=== PATIENT | male | born 1930 | race Caucasian/White ===

== ENCOUNTER 2019-02-24 05:45 | Inpatient (IN) | payer MEDICARE ==
[~2019-02-24] VITALS: Ht 180.3 cm; Wt 80.9 kg
[~2019-02-24 05:45] MED LIST: CHOL2000 PO; FOLI-62 PO; LISI1TAB32 PO; MESA1.2T PO; OMEP-297 PO
[2019-02-24] MEDS ORDERED: normal saline 1000ML IV soln IVB ONE (05:50)
[2019-02-24] MEDS ORDERED: normal saline 1000ml 1,000 ML IV ONE (05:50)
[2019-02-24 06:43] LABS: BASOPHILS % (AUTO) 0.4 % (0-1); EOSINOPHILS # (AUTO) 0.1 X10'3 (0-0.9); EOSINOPHILS % (AUTO) 1.4 % (0-6); HEMATOCRIT 37.9 % (42.0-52.0); HEMOGLOBIN 12.9 g/dl (14.0-17.9); LYMPHOCYTES # (AUTO) 1.2 X10'3 (1.1-4.8); LYMPHOCYTES % (AUTO) 12.3 % (21-51); MEAN CORPUSCULAR HEMOGLOBIN 31.4 PG (27.0-31.0); MEAN CORPUSCULAR HGB CONC 33.9 g/dL (33.0-36.5); MEAN CORPUSCULAR VOLUME 92.5 FL (78-98); MONOCYTES # (AUTO) 0.5 X10'3 (0-0.9); MONOCYTES % (AUTO) 5.6 % (2-12); NEUTROPHILS # (AUTO) 7.6 X10'3 (1.8-7.7); NEUTROPHILS % (AUTO) 80.3 % (42-75); PLATELET COUNT 164 X10'3 (140-440); RED CELL DISTRIBUTION WIDTH 13.3 % (11.5-14.5); WHITE BLOOD COUNT 9.4 X10'3 (4.5-11.0)
[2019-02-24 06:53] LABS: ALANINE AMINOTRANSFERASE 51 U/L (12-78); ALBUMIN 3.8 G/DL (3.4-5.0); ALBUMIN/GLOBULIN RATIO 1.2 (1.1-1.5); ALKALINE PHOSPHATASE 69 IU/L (46-116); ANION GAP 10 (8-16); ASPARTATE AMINO TRANSFERASE 48 U/L (10-37); BILIRUBIN,TOTAL 0.6 MG/DL (0.1-1.0); BLOOD UREA NITROGEN 23 MG/DL (7-18); CALCIUM 9.2 MG/DL (8.5-10.1); CHLORIDE 105 MMOL/L (99-107); CREATININE 1.77 MG/DL (0.60-1.10); GLUCOSE 210 MG/DL (70-104); POTASSIUM 4.7 MMOL/L (3.5-5.1); SODIUM 141 MMOL/L (135-145); TOTAL CARBON DIOXIDE 26.1 MMOL/L (24-32); eGFR 36 ML/MIN
[2019-02-24] MEDS ORDERED: HYDROmorphone 1 mg/ml syringe IV ONE ×2 (06:55)
[2019-02-24] MEDS ORDERED: fentaNYL/PF 50MCG/1 ML 2ML syringe IV PRN ×2 (06:55→07:04)
[2019-02-24 06:57] LABS: LIPASE 171 U/L (73-393)
[2019-02-24] MEDS ORDERED: potassium Cl 20 mEq SR tablet PO PRN ×2 (07:35)
[2019-02-24] MEDS ORDERED: ondansetron/PF 4mg/2ml inj IV PRN (07:35)
[2019-02-24] MEDS ORDERED: potassium CL 10mEq/100ml bag 100 ML IV PRN ×2 (07:35)
[2019-02-24] MEDS ORDERED: magnesium 4gm in 100ml NS 100 ML IV PRN (07:35)
[2019-02-24] MEDS ORDERED: magnesium Cl slow-release 64mg tablet PO PRN (07:35)
[2019-02-24] MEDS ORDERED: magnesium 2GM in 50ml NS 50 ML IV PRN (07:35)
[2019-02-24] MEDS: K and/or MAG REPLACEMENT MC SCH ×2 (08:00→20:00)
[2019-02-24] MEDS ORDERED: MELO-100 PO (08:02)
[2019-02-24 09:00] VITALS: BP 141/72
[2019-02-24] MEDS: morphine 2 MG/ML inj. syringe IV PRN ×2 (10:13→14:25)
[2019-02-24 11:00] VITALS: BP 131/68
[2019-02-24] MEDS: normal saline 1000ml 1,000 ML IV SCH (13:03)
[2019-02-24 18:00] VITALS: BP 142/73
--- NOTE | 2019-02-24 18:39 | NUR ---
Patient in room [facility]. I have received report from JALEESA CAMPBELL and had the opportunity to ask questions and assume patient care. Patient is resting and the NG tube is suctioning.
--- NOTE | 2019-02-24 19:03 | NUR ---
Problems reprioritized. Patient report given, questions answered & plan of care reviewed with ADRIAN JAVED.
[2019-02-25] VITALS: BP 89/45
[2019-02-25 04:41] LABS: ANION GAP 6 (8-16); BLOOD UREA NITROGEN 22 MG/DL (7-18); BUN/CREATININE RATIO 12.9 (5.4-32.0); CALCIUM 8.6 MG/DL (8.5-10.1); CHLORIDE 109 MMOL/L (99-107); CREATININE 1.71 MG/DL (0.60-1.10); GLUCOSE 136 MG/DL (70-104); MAGNESIUM 1.6 MG/DL (1.5-2.4); POTASSIUM 4.4 MMOL/L (3.5-5.1); SODIUM 143 MMOL/L (135-145); TOTAL CARBON DIOXIDE 28.1 MMOL/L (24-32); eGFR 38 ML/MIN
[2019-02-25 04:46] LABS: BASOPHILS # (AUTO) 0.1 X10'3 (0-0.2); EOSINOPHILS # (AUTO) 0.3 X10'3 (0-0.9); EOSINOPHILS % (AUTO) 4.8 % (0-6); HEMATOCRIT 34.5 % (42.0-52.0); HEMOGLOBIN 11.9 g/dl (14.0-17.9); LYMPHOCYTES % (AUTO) 16.9 % (21-51); MEAN CORPUSCULAR HEMOGLOBIN 31.9 PG (27.0-31.0); MEAN CORPUSCULAR HGB CONC 34.4 g/dL (33.0-36.5); MEAN CORPUSCULAR VOLUME 92.8 FL (78-98); MEAN PLATELET VOLUME 8.3 FL (7.4-10.4); MONOCYTES # (AUTO) 0.7 X10'3 (0-0.9); MONOCYTES % (AUTO) 11.9 % (2-12); NEUTROPHILS # (AUTO) 3.8 X10'3 (1.8-7.7); NEUTROPHILS % (AUTO) 65.4 % (42-75); PLATELET COUNT 164 X10'3 (140-440); RED BLOOD COUNT 3.71 X10'6 (4.70-6.10); RED CELL DISTRIBUTION WIDTH 13.3 % (11.5-14.5); WHITE BLOOD COUNT 5.8 X10'3 (4.5-11.0)
--- NOTE | 2019-02-25 06:05 | NUR ---
Problems reprioritized. Patient report given, questions answered & plan of care reviewed with Hailey CAMPBELL.
--- NOTE | 2019-02-25 06:49 | NUR ---
Patient in room [facility]. I have received report from ADRIAN JAVED and had the opportunity to ask questions and assume patient care.
[2019-02-25 07:00] VITALS: BP 112/67
[2019-02-25] MEDS: K and/or MAG REPLACEMENT MC SCH ×2 (08:00→20:00)
[2019-02-25] MEDS: normal saline 1000ml 1,000 ML IV SCH (09:11)
[2019-02-25 11:00] VITALS: BP 135/74
[2019-02-25 18:00] VITALS: BP 132/71
--- NOTE | 2019-02-25 18:15 | NUR ---
Problems reprioritized. Patient report given, questions answered & plan of care reviewed with ADRIAN FERRER.
--- NOTE | 2019-02-25 18:24 | NUR ---
Patient in room [facility]. I have received report from ADRIAN Hart and had the opportunity to ask questions and assume patient care.
[2019-02-25] MEDS ORDERED: Melatonin 3mg tablet PO SCH (21:00)
[2019-02-26] MEDS: normal saline 1000ml 1,000 ML IV SCH ×2 (04:53→11:04)
[2019-02-26 05:32] LABS: ALBUMIN 3.5 G/DL (3.4-5.0); ANION GAP 11 (8-16); BLOOD UREA NITROGEN 23 MG/DL (7-18); BUN/CREATININE RATIO 14.5 (5.4-32.0); CALCIUM 8.9 MG/DL (8.5-10.1); CHLORIDE 106 MMOL/L (99-107); CREATININE 1.59 MG/DL (0.60-1.10); GLUCOSE 135 MG/DL (70-104); MAGNESIUM 1.4 MG/DL (1.5-2.4); POTASSIUM 3.4 MMOL/L (3.5-5.1); SODIUM 141 MMOL/L (135-145); TOTAL CARBON DIOXIDE 24.1 MMOL/L (24-32); eGFR 41 ML/MIN
[2019-02-26 05:40] LABS: BASOPHILS % (AUTO) 0.3 % (0-1); EOSINOPHILS # (AUTO) 0.3 X10'3 (0-0.9); EOSINOPHILS % (AUTO) 5.5 % (0-6); HEMATOCRIT 35.9 % (42.0-52.0); HEMOGLOBIN 12.1 g/dl (14.0-17.9); LYMPHOCYTES # (AUTO) 1.2 X10'3 (1.1-4.8); LYMPHOCYTES % (AUTO) 21.1 % (21-51); MEAN CORPUSCULAR HEMOGLOBIN 31.7 PG (27.0-31.0); MEAN CORPUSCULAR HGB CONC 33.8 g/dL (33.0-36.5); MEAN CORPUSCULAR VOLUME 93.9 FL (78-98); MEAN PLATELET VOLUME 8.3 FL (7.4-10.4); MONOCYTES # (AUTO) 0.6 X10'3 (0-0.9); MONOCYTES % (AUTO) 10.3 % (2-12); NEUTROPHILS # (AUTO) 3.5 X10'3 (1.8-7.7); NEUTROPHILS % (AUTO) 62.8 % (42-75); PLATELET COUNT 179 X10'3 (140-440); RED BLOOD COUNT 3.82 X10'6 (4.70-6.10); RED CELL DISTRIBUTION WIDTH 13.2 % (11.5-14.5); WHITE BLOOD COUNT 5.5 X10'3 (4.5-11.0)
--- NOTE | 2019-02-26 06:13 | NUR ---
Problems reprioritized. Patient report given, questions answered & plan of care reviewed with ADRIAN Cox.
--- NOTE | 2019-02-26 06:41 | NUR ---
Patient in room [facility]. I have received report from Tobin CAMPBELL and had the opportunity to ask questions and assume patient care.
[2019-02-26 07:00] VITALS: BP 151/79
[2019-02-26] MEDS: K and/or MAG REPLACEMENT MC SCH (08:00)
--- NOTE | 2019-02-26 09:43 | NUR ---
Normal for patient, Crohns DZ Addendum: 02/26/19 at 0945 by Brooke Espinoza RN Amended: Links added.
[2019-02-26 11:00] VITALS: BP 149/69
[2019-02-26] MEDS ORDERED: LISI10TA4 PO (14:48)
--- NOTE | 2019-02-26 15:35 | NUR ---
Patient discharged on nursing end, waiting on his family member to pick him up after they got off work.
--- NOTE | 2019-02-26 17:21 | NUR ---
Patient discharged, walked out with family. All education and teaching completed. Patient aware of times for next medication doses. Patient A&Ox4.
== END 2019-02-26 16:33 | disposition home or self-care (01) | DRG 389 ==
LOC: ER 05:46 → ED HOLD 08:30 → SUR 3N 09:48
PROVIDERS: ADMIT Internal Medicine; ATTEND Internal Medicine
PROC: 0D9670Z Drainage of Stomach with Drainage Device, Via Natural or Artificial Opening (ICD-10-PCS; principal; 2019-02-24)
DX: K56.609 Unspecified intestinal obstruction, unspecified as to partial versus complete obstruction (principal); K50.90 Crohn's disease, unspecified, without complications; N17.9 Acute kidney failure, unspecified; I10 Essential (primary) hypertension; E86.9 Volume depletion, unspecified; Z66 Do not resuscitate; Z85.46 Personal history of malignant neoplasm of prostate; Z85.038 Personal history of other malignant neoplasm of large intestine; Z90.49 Acquired absence of other specified parts of digestive tract; Z79.899 Other long term (current) drug therapy
CPT/HCPCS: 36415; 74176; 80048; 80053; 83605; 83690; 83735; 84484; 85025; 87081; 93005; 96374; 99285; G0378; J1170; J2270; J3010; J7030